=== PATIENT | male | born 1960 | race Hispanic/Latino ===

== ENCOUNTER 2022-07-03 22:05 | Emergency (ER) | payer OTHER, SELFPAY ==
[2022-07-03] VITALS (9 sets, daily range): BP systolic 101–134; BP diastolic 55–77; PULSE 48–67; RESP 13–19; O2SAT 94–98
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
--- NOTE | 2022-07-03 23:30 | PC.NURSE ---
Assumed care. Dr. Crenshaw at bedside to suture lac. pt A&Ox4. tolerating well.
[2022-07-03] MEDS: LIDOCAINE HCL 1% LOCAL INJ 20 ML VIAL (23:38)
[2022-07-03] MEDS: TETANUS,DIPHTHERIA,AC PERTUSSIS ADULT (0.5 ML) BOOSTRIX IM (23:39)
[2022-07-03] MEDS: SODIUM CHLORIDE 0.9% IV 1,000 ML 999 ML IV CONT (23:40)
[2022-07-03] MEDS: fentaNYL CITRATE INJ (*CRX) 100 MCG/2 ML VIAL 50 MCG IV PUSH (23:46)
[2022-07-03] MEDS: levETIRAcetam 1000MG/NACL100ML 1,000 MG/100 ML BAG 400 MG IVPB (23:52)
[2022-07-04] VITALS: PULSE 53; RESP 18
[2022-07-04 00:23] VITALS: PULSE 56; RESP 14
== END 2022-07-04 00:47 | disposition short-term general hospital (02) ==
PROVIDERS: Emergency Provider Preventive Medicine Aerospace Medicine
DX: S06.6X0A Traumatic subarachnoid hemorrhage without loss of consciousness, initial encounter (principal); S01.01XA Laceration without foreign body of scalp, initial encounter; S62.366A Nondisplaced fracture of neck of fifth metacarpal bone, right hand, initial encounter for closed fracture; E78.5 Hyperlipidemia, unspecified; V64.5XXA Driver of heavy transport vehicle injured in collision with heavy transport vehicle or bus in traffic accident, initial encounter; Z23 Encounter for immunization
CPT/HCPCS: 12004; 70450; 70486; 72125; 73130; 90715; 96365; 96367; 96368; 99285; J0131; J0690; J1953; J3010; J7030